=== PATIENT | female | born 1930 | race African-American/Black ===

== ENCOUNTER → 2016-10-07 | Day surgery (SDC) | payer MEDICARE, MEDICAID ==
[~2016-10-07] VITALS: Ht 157.5 cm; Wt 58.1 kg
[~2016-10-07] MED LIST: AMLO10TA80 PO; ASPI-1035 PO; ATEN-42 PO; BACITRACIN 50,000 UNITS/VIAL ONE; BACITRACIN ZINC 15GM TUBE TOP ONE; BUPIVACAINE HCL/PF 0.5% (5MG/ML) 10ML ONE; CEFAZOLIN SODIUM 1000MG/VIAL ONE; CLOP75TA33 PO; EPHEDRINE SULFATE 50MG/ML VIAL ONE; FENTANYL CITRATE/PF 50MCG/ML 2ML VIAL ONE; FOLI1TAB87 PO; GELATIN SPONGE,ABSORBABLE SZ 100 ONE; GLYCOPYRROLATE 0.2 MG/ML 2ML VIAL ONE; HEPARIN SODIUM 1,000 UNIT/1ML VIAL IV ONE; HYDROMORPHONE HCL/PF 2MG/ML CPJ IV PRN; LIDOCAINE HCL 1% 20ML VIAL (Pyxis) INJ ONE; LOSA100T14 PO; NORMAL SALINE 0.9% 10 ML SYR ONE; ONDANSETRON HCL 4MG/2ML VIAL IV PRN; PAPAVERINE HCL 30 MG/ML 2ML IV ONE; PROPOFOL 200MG/20ML VIAL IV ONE; SEVE800T8 PO; SODIUM CHLORIDE 0.9% 500 ML IV ONE; THROMBIN (BOVINE) 5000 UNITS/VIAL TOP ONE
[2016-10-07 06:26] LABS: BASOPHILS % 0.9 % (0.0-2.0); DIFFERENTIAL COMMENT 0; EOSINOPHILS % 2.9 % (0.0-5.0); HEMATOCRIT. 34.7 % (36.0-48.0); HEMOGLOBIN. 11.5 g/dL (12.0-16.0); LYMPHOCYTES % 18.3 % (20.0-50.0); MEAN CORPUSCULAR HEMOGLOBIN 34.4 pg (28.0-32.0); MEAN CORPUSCULAR HGB CONC 33.2 g/dL (31.0-37.0); MEAN CORPUSCULAR VOLUME 103.5 fL (81.0-99.0); MONOCYTES % 12.7 % (2.0-8.0); NEUTROPHILS % 65.2 % (40.0-76.0); PLATELET 114 x1000/uL (130-400); RED BLOOD CELL COUNT 3.35 mill/uL (4.2-5.4); RED CELL DISTRIBUTION WIDTH 15.1 % (11.6-14.6); WHITE BLOOD COUNT 6.3 x1000/uL (4.5-11.0)
[2016-10-07 06:30] LABS: INR 1.1; PARTIAL THROMBOPLASTIN TIME 25.4 sec (24.0-34.0); PROTHROMBIN TIME 11.9 sec
[2016-10-07 06:42] LABS: CALCIUM 9.2 mg/dL (8.5-10.1)
== END | disposition home or self-care (01) ==
LOC: OR 05:19
PROVIDERS: ATTEND Surgery Vascular Surgery
DX: I12.0 Hypertensive chronic kidney disease with stage 5 chronic kidney disease or end stage renal disease (principal); I77.0 Arteriovenous fistula, acquired; N18.6 End stage renal disease; I25.10 Atherosclerotic heart disease of native coronary artery without angina pectoris
CPT/HCPCS: 36415; 36832; 71010; 80048; 85025; 85610; 85730; 93005; A4216; C1768; J0171; J0690; J1644; J3010; J3490; J7040; J2440; J2704

== ENCOUNTER → 2017-07-10 | Outpatient (CLI) | payer MEDICARE, MEDICAID ==
[~2017-07-10] MED LIST changes: -AMLO10TA80 PO; -ASPI-1035 PO; +ASPI-1159 PO; -ATEN-42 PO; -BACITRACIN 50,000 UNITS/VIAL ONE; -BACITRACIN ZINC 15GM TUBE TOP ONE; -BUPIVACAINE HCL/PF 0.5% (5MG/ML) 10ML ONE; -CEFAZOLIN SODIUM 1000MG/VIAL ONE; -EPHEDRINE SULFATE 50MG/ML VIAL ONE; -FENTANYL CITRATE/PF 50MCG/ML 2ML VIAL ONE; -GELATIN SPONGE,ABSORBABLE SZ 100 ONE; -GLYCOPYRROLATE 0.2 MG/ML 2ML VIAL ONE; -HEPARIN SODIUM 1,000 UNIT/1ML VIAL IV ONE; -HYDROMORPHONE HCL/PF 2MG/ML CPJ IV PRN; -LIDOCAINE HCL 1% 20ML VIAL (Pyxis) INJ ONE; -LOSA100T14 PO; -NORMAL SALINE 0.9% 10 ML SYR ONE; -ONDANSETRON HCL 4MG/2ML VIAL IV PRN; -PAPAVERINE HCL 30 MG/ML 2ML IV ONE; -PROPOFOL 200MG/20ML VIAL IV ONE; -SODIUM CHLORIDE 0.9% 500 ML IV ONE; -THROMBIN (BOVINE) 5000 UNITS/VIAL TOP ONE
== END | disposition home or self-care (01) ==
LOC: MAMMO 08:58
PROVIDERS: ATTEND Internal Medicine Nephrology
DX: Z12.31 Encounter for screening mammogram for malignant neoplasm of breast (principal)
CPT/HCPCS: G0202